=== PATIENT | male | born 1980 | race Caucasian/White ===

== ENCOUNTER 2017-05-23 23:27 | Emergency (ER) | payer BC ==
--- NOTE | 2017-05-24 00:02 | ED ---
Skin Complaint - HPI Summary HPI Summary: 36M presents with bump on the top of his head for 6 days. He states the area is painful. He states that he has noticed swelling down the back of his head. He states that the redness of the area is spreading. He denies any fever. He denies the area being itchy. He denies any tick exposure. He does not know if he was bite by something. He has not taken anything for pain. He does not have a primary. - History of Current Complaint Chief Complaint: EDHeadInjury Time Seen by Provider: 05/23/17 23:38 Stated Complaint: SWOLLEN ON TOP OH HEAD AND PAINFUL Pain Intensity: 2 - Allergy/Home Medications Allergies/Adverse Reactions: Allergies Allergy/AdvReac Type Severity Reaction Status Date / Time No Known Allergies Allergy Verified 05/25/14 06:31 PMH/Surg Hx/FS Hx/Imm Hx Endocrine/Hematology History: Denies: Hx Anticoagulant Therapy, Hx Diabetes Cardiovascular History: Denies: Hx Hypertension Infectious Disease History: No Infectious Disease History: Denies: Traveled Outside the [place] in Last 30 Days - Family History Known Family History: Negative: Cardiac Disease - Social History Alcohol Use: None Substance Use Type: Reports: None Smoking Status (MU): Former Smoker Review of Systems Negative: Fever Negative: Chest Pain Negative: Shortness Of Breath Positive: Rash All Other Systems Reviewed And Are Negative: Yes Physical Exam Triage Information Reviewed: Yes Vital Signs On Initial Exam: Initial Vitals Temp Pulse Resp BP Pulse Ox 98.2 F 61 16 160/91 100 05/23/17 23:30 05/23/17 23:30 05/23/17 23:30 05/23/17 23:30 05/23/17 23:30 Vital Signs Reviewed: Yes Appearance: Positive: Well-Appearing Skin: Positive: Other - 3 by 5cm area of erythema withou warmth to touch with some edema down back of head without any evidence of streaking Eyes: Positive: Normal, EOMI, JOHNSON, Conjunctiva Clear ENT: Positive: Normal ENT inspection, Pharynx normal, TMs normal Respiratory/Lung Sounds: Positive: Clear to Auscultation, Breath Sounds Present Cardiovascular: Positive: Normal, RRR Diagnostics - Vital Signs Vital Signs Temp Pulse Resp BP Pulse Ox 05/23/17 23:30 98.2 F 61 16 160/91 100 - Laboratory Lab Statement: Any lab studies that have been ordered have been reviewed, and results considered in the medical decision making process. Course/Dx - Course Course Of Treatment: 36M presents with bump on the top of his head for 6 days. He states the area is painful. He states that he has noticed swelling down the back of his head. He states that the redness of the area is spreading. He denies any fever. He denies the area being itchy. He denies any tick exposure. on exam area does not appear cellulitic more like a bug bite with surrounding irritation. discussed with patient will send script to pharmacy for patient to reevulate area in morning then should start antibiotic if gets worst. patient understands and agrees with plan - Differential Diagnoses - Skin Complaint Differential Diagnoses: Abscess, Cellulitis, Contact Dermatitis - Diagnoses Provider Diagnoses: Rash Discharge - Discharge Plan Condition: Good Disposition: HOME Prescriptions: Cephalexin CAP* [Keflex CAP*] 500 mg PO BID #20 cap Referrals: [facility] [Outside] Additional Instructions: A script for an antibiotic was sent to the pharmacy. If the redness of the area continues to spread, the area becomes warm to the touch, or if develop a fever start the antibiotic twice a day for [address] ice on the area Continue placing neosporin on the area. Establish care with primary care physician Return to ED if develop any new or worsening symptoms
[2017-05-24 00:45] VITALS: BP 126/70
== END 2017-05-24 00:14 | disposition home or self-care (01) ==
LOC: ED 23:27
DX: R21 Rash and other nonspecific skin eruption (principal); Z87.891 Personal history of nicotine dependence
CPT/HCPCS: 99282

== ENCOUNTER 2017-05-26 15:38 | Emergency (ER) | payer BC ==
--- NOTE | 2017-05-26 17:28 | UC ---
Skin Complaint HPI - HPI Summary HPI Summary: This is an otherwise healthy 36 yo gentleman who presented with c/o a painful skin lesion on his scalp. He was seen for the same complaint 3d ago in the ER. It was thought to be a bug bite with associated cellulitis and he was started on Keflex. He has noted no improvement and new vesicular lesions have developed in the area. He reports the lesions as painful and occasional tingling sensation. No fevers or generalized complaints. - History of Current Complaint Chief Complaint: UCSkin Stated Complaint: SKIN COMPLAINT - SCALP - Allergy/Home Medications Allergies/Adverse Reactions: Allergies Allergy/AdvReac Type Severity Reaction Status Date / Time No Known Allergies Allergy Verified 05/26/17 15:53 Review of Systems Constitutional: Negative Skin: Rash Eyes: Negative ENT: Negative Respiratory: Negative Cardiovascular: Negative Gastrointestinal: Negative Genitourinary: Negative Motor: Negative Neurovascular: Negative Musculoskeletal: Negative Neurological: Negative Psychological: Negative All Other Systems Reviewed And Are Negative: Yes PMH/Surg Hx/FS Hx/Imm Hx Previously Healthy: Yes Other History Of: Negative For: Anticoagulant Therapy - Surgical History Surgical History: None - Family History Known Family History: Positive: None Negative: Cardiac Disease - Social History Alcohol Use: None Substance Use Type: None Smoking Status (MU): Former Smoker Physical Exam Triage Information Reviewed: Yes Appearance: Well-Appearing Vital Signs: Initial Vital Signs Temp 98.2 F 05/26/17 15:49 Pulse 86 05/26/17 15:49 Resp 18 05/26/17 15:49 Pulse Ox 100 05/26/17 15:49 Vital Signs Reviewed: Yes Neck: Positive: Supple, Nontender, No Lymphadenopathy Respiratory: Positive: Lungs clear, Normal breath sounds Cardiovascular: Positive: RRR, No Murmur Skin: Positive: Other - He has a raised lesion with shallow central ulceration over the L parietal region with new lesions with small vesicles just posterior to that in a somewhat linear distribution Course/Dx - Course Course Of Treatment: THis is an otherwise healthy 36 yo gentleman who presented with c/o a painful, vesicular rash over the L side of his scalp. No improvement with Keflex. Suspect herpes zoster. Could also represent poison letty or similar phenomenon. Started empiric therapy with valacyclovir and sample taken of vesicular fluid for zoster PCR testing. - Differential Diagnoses - Skin Complaint Differential Diagnoses: Drug Rash, Eczema, Impetigo, Local Allergic Reaction - Diagnoses Provider Diagnoses: 1. Probable herpes zoster Discharge - Discharge Plan Condition: Stable Disposition: HOME Prescriptions: Hydrocodone-Acetaminophen [Lorcet 5-325 mg] 1 - 2 tab PO Q6H PRN #20 tab MDD 8 tabs PRN Reason: Pain ValACYclovir (*) [Valtrex 1 GM(*)] 1 gm PO TID #21 tab Patient Education Materials: Shingles (ED), Poison Letty (ED) Referrals: No Primary Care Phys,NOPCP [Primary Care Provider] - Additional Instructions: Activity: No restrictions Instructions: 1. Start valacyclovir as directed 2. Call for results of the sample we took today, and if negative you can stop the valacyclovir and use hydrocortisone cream 3. Follow up with your primary care if symptoms persist
[2017-05-26 17:32] VITALS: BP 131/77
[2017-05-30 01:07] LABS: Varicella Zoster Result Positive (Negative)
== END 2017-05-26 17:24 | disposition home or self-care (01) ==
LOC: UCEAST 15:38
DX: L98.9 Disorder of the skin and subcutaneous tissue, unspecified (principal); Z87.891 Personal history of nicotine dependence
CPT/HCPCS: 87798; 99212; G0463

== ENCOUNTER 2019-06-15 10:49 | Observation (INO) | payer BC, OTHER ==
[2019-06-15] MEDS ORDERED: Ibuprofen TAB* 600 MG PO ONE (12:21)
[2019-06-15] MEDS: Lidocaine 1% MPF ** 5 ML VIAL INJ ONE ×2 (12:48→14:37)
[2019-06-15] MEDS ORDERED: Cephalexin CAP* 500 MG PO ONE (12:49)
[2019-06-15] MEDS ORDERED: Ondansetron INJ* 2 MG/ML VIAL IV PRN ×2 (14:05→17:18)
[2019-06-15] MEDS ORDERED: Morphine INJ* 2 MG/ML 1 ML SYRINGE (TWO MG - NEW SYRINGE VERSION) IV PRN (14:05)
--- NOTE | 2019-06-15 14:17 | HP ---
HISTORY AND PHYSICAL: DATE OF ADMISSION: 06/15/19 HISTORY OF PRESENT ILLNESS: Mr. 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 He was putting some trash in the dumpster when the dump ster lid came down on his left index MCP joint. He has a 2 cm laceration there and an angulated prox imal phalangeal fracture. This will be washed out and pinned in the operating room and he ate approx imately 3 hours ago, so hopefully within 3 hours we can do this procedure. He is otherwise a healthy gentleman on no particular medications, and systemic medical illness. He h as been feeling well lately. FAMILY HISTORY: Noncontributory. SOCIAL HISTORY: Noncontributory. REVIEW OF SYSTEMS: Negative for fevers, chills, headache, chest pain, shortness of breath, abdominal distress, neurological issues, depression, and anxiety. PHYSICAL EXAMINATION GENERAL: Ruiz is an anxious, but healthy-appearing male in no acute distress. Appropriate mood an d affect. HEENT: He has a clear oropharynx. NECK: Supple. CHEST: Clear to auscultation in all lung fam. CARDIAC: Shows regular rate. No extra sounds noted. ABDOMEN: Flat and nontender. EXTREMITIES: Pertinent for left upper extremity where he shows a 2-cm oblique laceration over the MC P joint of his left index finger. He is unable to extend or flex the index finger, but he has intact sensation to the finger itself with a warm finger and good capillary refill. DIAGNOSTIC STUDIES: Again, x-ray shows about 45 degree angulation through this proximal phalangeal fracture, which is more or less transverse in the proximal third. ASSESSMENT AND PLAN: The patient will need debridement of the wound and inspection of the tendon and pinning of the fracture under anesthesia. [id number]/[facility] #: [id number]
--- NOTE | 2019-06-15 14:28 | ED ---
Upper Extremity Pain - HPI Summary HPI Summary: Pt. is a 38 y.o male who presents to the ER for an injury to his left hand. 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 Pt. states last tetanus was last year. No past medical hx. Sxs are mild in severity. Moving hand makes sxs worse. Nothing makes sxs better. - History of Current Complaint Chief Complaint: EDLacSutureRecheck Stated Complaint: CRUSHED LEFT POINTER FINGER PER PT Time Seen by Provider: 06/15/19 12:13 Hx Obtained From: Patient - Allergies/Home Medications Allergies/Adverse Reactions: Allergies Allergy/AdvReac Type Severity Reaction Status Date / Time No Known Allergies Allergy Verified 06/15/19 11:58 PMH/Surg Hx/FS Hx/Imm Hx Previously Healthy: Yes Endocrine/Hematology History: Denies: Hx Anticoagulant Therapy, Hx Diabetes Cardiovascular History: Denies: Hx Hypertension Infectious Disease History: No Infectious Disease History: Denies: Traveled Outside the [place] in Last 30 Days - Family History Known Family History: Positive: None, Non-Contributory Negative: Cardiac Disease - Social History Occupation: Employed Full-time Lives: With Family Alcohol Use: Occasionally Substance Use Type: Reports: None Smoking Status (MU): Former Smoker Review of Systems Positive: Other - pain and laceration to left second digit of hand. Positive: Other - laceration Negative: Weakness, Paresthesia, Numbness All Other Systems Reviewed And Are Negative: Yes Physical Exam Triage Information Reviewed: Yes Vital Signs On Initial Exam: Initial Vitals Temp Pulse Resp BP Pulse Ox 99.0 F 83 18 159/70 98 06/15/19 10:53 06/15/19 10:53 06/15/19 10:53 06/15/19 10:53 06/15/19 10:53 Vital Signs Reviewed: Yes Appearance: Positive: Well-Appearing - Pt. sitting in chair in NAD. SO present. Skin: Positive: Warm, Dry Head/Face: Positive: Normal Head/Face Inspection Eyes: Positive: Normal, EOMI Neck: Positive: Supple Musculoskeletal: Positive: Other - 2cm linear laceration noted over left seond digit of hand. Finger is in a flexed position and pt. unable to extend digit. Neurological: Positive: Normal, CN Intact II-III Psychiatric: Positive: Affect/Mood Appropriate Diagnostics - Vital Signs Vital Signs Temp Pulse Resp BP Pulse Ox 06/15/19 10:53 99.0 F 83 18 159/70 98 - Laboratory Lab Statement: Any lab studies that have been ordered have been reviewed, and results considered in the medical decision making process. Course/Dx - Course Course Of Treatment: Patient presenting with left hand injury. Motrin given for pain. Tetanus is up-to-date per patient. X-ray per radiology: IMPRESSION : Displaced fracture through the proximal left second phalanx with volar apex angulation. Case discussed with Dr. Posada, orthopedics, who examined patient and the ER. He will plan to take him to OR today for washout and pinning. - Diagnoses Differential Diagnosis/HQI/PQRI: Positive: Contusion, Fracture (Open), Laceration, Strain, Sprain Provider Diagnoses: Open finger fracture Discharge - Sign-Out/Discharge Documenting (check all that apply): Patient Departure Patient Received Moderate/Deep Sedation with Procedure: No - Discharge Plan Condition: Stable Disposition: ADMITTED TO [facility] Referrals: No Primary Care Phys,NOPCP [Primary Care Provider] - - Billing Disposition and Condition Condition: STABLE Disposition: Admitted to [facility]
[2019-06-15] MEDS ORDERED: ceFAZolin 1 GM ADVAN(*) 1 GM in NS 0.9% 50 ML* 50 ML IVPB ONE (14:38)
[2019-06-15] MEDS ORDERED: Midazolam* 1 MG/ML 5 ML VIAL (5 MG) ONE (14:45)
[2019-06-15] MEDS ORDERED: Dexamethasone IV* 4 MG/ML 1 ML (4 MG) ONE (14:45)
[2019-06-15] MEDS ORDERED: fentaNYL* 50 MCG/ML 2 ML VIAL (100 MCG VIAL) ONE ×2 (14:45→17:48)
[2019-06-15] MEDS ORDERED: Lidocaine 2% PF * 5 ML VIAL ONE (14:45)
[2019-06-15] MEDS ORDERED: Ondansetron INJ* 2 MG/ML VIAL ONE (14:45)
[2019-06-15] MEDS ORDERED: Propofol* 10 MG/ML 20 ML BTL ONE (14:45)
[2019-06-15] MEDS ORDERED: ceFAZolin 2 GM in NS PREMIX(*) 2 GM/100 ML BAG IVPB ONE (14:52)
[2019-06-15] MEDS ORDERED: Famotidine IV* 10 MG/ML 2 ML (20 mg) ONE (15:15)
[2019-06-15] MEDS ORDERED: Bupivacaine 0.5%* 50 ML MDV VIAL ONE (15:18)
[2019-06-15] MEDS ORDERED: Famotidine IV* 10 MG/ML 2 ML (20 mg) IV ONE (15:24)
[2019-06-15] MEDS ORDERED: Buffered Lidocaine 1% SYRIN* 1 ML/SYRINGE INTRADERM ONE (15:24)
[2019-06-15] MEDS ORDERED: Cisatracurium* 2 MG/ML MDV 5 ML ONE (15:32)
--- NOTE | 2019-06-15 15:40 | HP ---
DATE OF ADMISSION: 06/15/2019. REASON FOR CONSULTATION: Open fracture, left index finger. 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 this morning, 06/15/2019. The patient's tetanus is up-to-date as of last year. The patient's last meal was this morning at 10: 00 a.m. when he has 1.5 bowls of cereal and an apple. He has had some sips of water with pills in [facility] emergency room. The patient crushed his finger putting out the trash at work this morning at 10:30 a.m. A cut was not ed, pain, swelling and deformity to the left index finger. The patient was taken to the emergency room where the patient was diagnosed by exam and x-rays with a n open fracture of the left index finger proximal phalanx. Orthopedic Surgery was called. The patien t was given oral Keflex in the emergency department. PAST MEDICAL HISTORY: None. PAST SURGICAL HISTORY: Myringotomy tubes. MEDICATIONS: None. ALLERGIES: No known drug allergies. FAMILY HISTORY: No family history of DVT or problems with anesthesia. Strong family history of hear t disease. SOCIAL HISTORY: The patient is right-hand dominant. He lives with his . The patient is very act chary and lifts weights. The patient and his stopped smoking seven years ago. REVIEW OF SYSTEMS: The patient occasionally gets some right upper extremity tingling which is very r are. Otherwise a full 14 point review of systems was normal. PHYSICAL EXAMINATION GENERAL: No acute distress. Alert and oriented. Appropriate mood and affect. Appropriate dress and hygiene. Non-antalgic gait. Well-coordinated bilateral upper and lower extremities. VITAL SIGNS: Stable. EXTREMITIES: Left hand: Exam shows a short oblique skin laceration overlying the base of the proxim al phalanx of the left index finger. There is no significant bleeding. The finger is warm and well- perfused. Cap refill less than two seconds distal end of the fingertip. Sensation is fully intact d orsally, but slightly reduced volarly radial and ulnar, but it is intact. The patient was able to extend at the DIP and PIP joint actively. IMAGING: X-ray views of the left hand obtained in the emergency room were reviewed by me. They show a fracture of the index finger proximal phalanx at the junction of the base and the proximal shaft. There is significant volar apex deformity at the fracture site. Noncomminuted. No other fracture i s noted in the hand. No metallic foreign bodies. ASSESSMENT: 1. Left index finger proximal phalanx open fracture, significantly displaced. 2. Possible left index finger extensor tendon injury. Unlikely, but possible. PLAN: 1. Patient was given oral Keflex in the emergency department. IV has not yet been established, but when it is the patient will get IV antibiotics. 2. I placed an iodine-soaked gauze over the wound and then applied dry sterile dressing and then tanya lied a volar splint of the fingers, hand, and wrist for comfort. 3. Continue the patient NPO. I spoke with the operating room and organized the patient being shlomo t to the operating room. 4. To the operating room for open incision, irrigation, and debridement left index finger with close d reduction percutaneous pinning versus open reduction internal fixation left index finger proximal p halanx fracture, possible repair of extensor tendon. 5. Obtained preoperative surgical consent, written. Discussed risks and potential complications at length with the patient. He understands that he will likely have pins in place for four weeks postop erative and that those will then be removed in clinic. 6. The patient will get IV antibiotics either in route to the operating room or just prior to surgic al incision. [id number]/[facility] #: [id number]
[2019-06-15] MEDS ORDERED: Lactated Ringers 1000 ML Bag* 1,000 ML IV SCH (16:00)
[2019-06-15] MEDS ORDERED: Glycopyrrolate IV* 0.2 MG/ML 1 ML VIAL ONE (16:41)
[2019-06-15] MEDS ORDERED: Neostigmine Methylsulfate* 1 MG/ML 10 ML VIAL (1 mg/ml) ONE (16:41)
[2019-06-15] MEDS ORDERED: fentaNYL* 50 MCG/ML 2 ML VIAL (100 MCG VIAL) IV PRN (17:18)
[2019-06-15] MEDS ORDERED: Naloxone* 0.4 MG/ML 1 ML VIAL IV PRN (17:18)
[2019-06-15] MEDS ORDERED: oxyCODONE/Acetamin 5/325 MG* TAB ONE (17:53)
[2019-06-15] MEDS: oxyCODONE/Acetamin 5/325 MG* TAB PO PRN ×2 (17:54→23:46)
[2019-06-15] MEDS: NS 0.9% 1000 ML** 1,000 ML IV SCH (18:36)
[2019-06-15] MEDS: Acetaminophen TAB* 325 MG PO PRN (20:11)
[2019-06-15] MEDS: ceFAZolin 1 GM* X 3 DOSES POST-OP Q8H (AddVan) IVPB SCH ×2 (23:47)
[2019-06-16] MEDS: NS 0.9% 1000 ML** 1,000 ML IV SCH (04:35)
[2019-06-16] MEDS: oxyCODONE/Acetamin 5/325 MG* TAB PO PRN (04:43)
[2019-06-16] MEDS: Acetaminophen TAB* 325 MG PO PRN (08:14)
[2019-06-16] MEDS: ceFAZolin 1 GM* X 3 DOSES POST-OP Q8H (AddVan) IVPB SCH ×4 (08:16→14:16)
--- NOTE | 2019-06-16 09:45 | PN ---
Progress Note - Progress Note Date of Service: 06/16/19 SOAP: Subjective: Minimal pain t/w Tylenol only so far. Objective: LUE: - Splint in place - Index finger tip CR < 2 seconds, sensation intact Selected Entries 06/16/19 08:00 Temperature 98.7 F Pulse Rate 50 Respiratory 16 Rate Blood Pressure 129/52 (mmHg) O2 Sat by Pulse 100 Oximetry Assessment: POD 1 L index finger I&D, CRPP open fracture index finger proximal phalanx, evaluation extensor mechanism Plan: - LUE splint in place - Sling has been called for. Patient can use the sling as desired to help with LUE elevation - Ancef IV x 3 doses postop for open fracture - Discharge home after IV abx finished. Then Keflex x 7 days oral. - Follow up in clinic on 06/21/19 for xrays and a change into a cast - Pain control
--- NOTE | 2019-06-16 10:17 | DS ---
Orthopedic Discharge Summary - Discharge Summary Date of Admission:06/15/19 Date of Discharge: 06/16/2019 Date of Surgery: 06/15/2019 Attending Orthopedic Provider: Dr. Causey Pre-operative Diagnosis: open fracture index finger proximal phalanx Operative Procedure: L index finger I&D, CRPP open fracture index finger proximal phalanx, evaluation extensor mechanism Disposition of Patient: Home Condition of Patient: Stable History: HECTOR SERRANO is a 38 y.o male who presented to the ER for an injury to his left hand. 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 Sxs are mild in severity. Moving hand makes sxs worse. Nothing makes sxs better. Hospital Course: HECTOR was admitted to [facility] on 06/15/19. Patient underwent a L index finger I&D, CRPP open fracture index finger proximal phalanx, evaluation extensor mechanism without complication followed by a brief recovery in PACU and transfer to the Short Stay Surgical Unit in stable condition. Post-op day 1: patient was alert and in no acute distress. Dressing was clean, dry and intact. Patient was deemed to be medically and orthopedically stable for discharge. Home Medications Medication Instructions Recorded Confirmed Type NK [No Home Medications Reported] 06/15/19 06/15/19 History Discharge Instructions following Orthopedic Surgery: Wound care: Keep dressing dry and intact until office visit. Call Orthopedic office for: * Increased drainage * Redness * Increased pain * Fever Go to ER with shortness of breath or chest pain. Diet: * Regular diet * Increase fluids and fiber to prevent constipation. * Continue to use stool softeners, call office if no bowel motion within 48 hours. Medications See Home Medication List in your packet for medications that you should take after discharge. Pain Control: Tramadol 50 mg, take 1 tab every 6 hours as needed for pain. Antibiotics: Keflex 500mg 3 times per day x 7 days FOLLOW UP: Follow up with Dr. Causey on 06/21/2019, call for appointment Please call our office with any questions or concerns ([phone])
[2019-06-16 11:13] VITALS: BP 124/58
[2019-06-16] MEDS ORDERED: ceFAZolin 1 GM* X ONE DOSE (AddVan) IVPB ×2 (15:00)
--- NOTE | 2019-06-16 21:50 | OP ---
OPERATIVE REPORT: DATE OF OPERATION: 06/16/19 DATE OF : 82 SURGEON: Guilherme Causey MD FILAMENT WELDER: None. ANESTHESIOLOGIST: Dr. Shahid Weeks. ANESTHESIA: General anesthesia, local anesthesia with approximately 6 cc of Marcaine 0.5% without ep inephrine. PRE-OP DIAGNOSES: 1. Left index finger proximal phalanx open fracture, significantly displaced. 2. Possible left index finger extensor tendon injury. POST-OP DIAGNOSIS: Left index finger proximal phalanx open fracture, significantly displaced. OPERATIVE PROCEDURE: 1. Incision, irrigation, and debridement, skin and subcutaneous tissue about the left index finger f or an open fracture. 2. Open evaluation of extensor tendon and extensor tendon mechanism, left index finger. 3. Closed reduction, percutaneous pinning, left index finger proximal phalanx open fracture. ANTIBIOTICS: Ancef 2 g IV. IV FLUIDS: See Anesthesia note. FDWQ-UP-EFGY TIME: Approximately 40 minutes. TOURNIQUET TIME: 45 minutes at 250 mmHg, left upper arm tourniquet. RADIATION EXPOSURE: Mini-C arm. Length of time and actual exposure not available at this time. IRRIGATION USED TO CLEAN THE WOUND: 3 L. COMPLICATIONS: None. SPECIMENS: None. IMPLANTS: Synthes K-wires x3, each of the size 0.045. ESTIMATED BLOOD LOSS: None, 0 cc. 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 on 06/15/19, at work. The patient presented to the emergency depart [facility] and was diagnosed with an open fracture of the left proximal phalanx of the index finger. I saw the patient in the emergency department, placed iodine soaked gauze over the wound as can be no dariel in my history and physical. I placed the patient in a splint. Antibiotics were ordered. The pa tient was quickly brought up to preoperative holding and then to the operating room with excellent ef ficiency. Discussed risks and potential complications of the surgery with the patient and his including bl eeding, infection, nerve or blood vessel injury, failure of hardware, failure of reduction, finger st iffness, pain, osteoarthritis. Discussed period of postoperative immobilization required. DESCRIPTION OF PROCEDURE: In preoperative holding, I obtained the patient's written consent. Operat chary extremity and operative finger marked with a marking pen. The patient was brought back to the operating room on a stretcher. Sedated and intubated. Tournique t was placed about the left upper arm. Left upper extremity was placed on a hand table and was prepp ed and draped. Betadine was used given the open wound over the dorsum of the index finger. Surgical time-out performed. Esmarch was applied and tourniquet was elevated. I first explored the wound. The patient had a short oblique shaped wound over the dorsum of the inde x finger at the level of the fracture. I extended that laceration proximally and distally. I opened up the laceration and inspected the tissues below. It turned out that the patient's extensor mechan ism was entirely intact. Extensor viera and tendons and all the tissue of that layer were intact. I next irrigated the wound with 3 L of normal saline. I should state that prior to doing this there was not significant contamination of the wound. I closed the laceration and incisions loosely with simple stitches using nylon 4-0 suture. With the irrigation, debridement, and inspection with extensor mechanism complete, I moved to fixing the patient's bone. I performed a closed reduction. I first placed a pin through the radial base of the proximal phalanx directed in a distal and ulnar d irection. Adjusted that pin several times until I liked it. I confirmed excellent reduction in both AP and lateral planes with mini-C arm imaging. I confirmed no rotational deformity and intact digit al cascade on exam. I next placed the pin from the ulnar base in a distal radial direction, crossing he fracture site, pi n placed bicortically. At this point, I again assessed by mini-C arm imaging the bony reduction and on physical exam the rotation of the finger. Because the first pin that I have placed earlier did not grab a significant component of the bone puja pite being bicortical, I decided to get even better purchase and fixation, and I placed a second pin. This one more longitudinally, through the radial base of the proximal phalanx in a distal and ulnar direction. Mini-C arm final images obtained. Rotation of the finger confirmed to still be excellent. All pins placed just bicortically according to mini-C arm imaging. The pins, all 3 of them, which were all of 0.045 size were cut, bent and recut outside the skin. I p laced stoppers on the tips of the pins. Xeroform was placed around each pin as it entered the skin. This was followed by a very bulky steril e 4x4 soft tissue dressing which was followed by a bulky sterile Webril. With the patient's hand in the intrinsic plus position, I next placed on a bulky short arm splint, pl dani, volar and dorsal slabs, to the fingertips of the index, long, ring, and small fingers with the hand in an intrinsic plus position. This was overwrapped with an Derick bandage. Tourniquet was dropped. The patient was awakened and extubated and brought to the PACU. I should state that I prior to placing a dressing placed some local anesthesia, proximally 6 cc of 0. 5% Marcaine about the pin sites as well as more proximal along the dorsal hand. DISPOSITION: Postoperatively, the patient transferred to the PACU and then to the floor. Because th e patient had an open fracture, per protocol, I wanted the patient to get 24 hours of IV antibiotics. Therefore, the patient was going to stay for Ancef 1 g IV q.8 hours for 3 postoperative doses. The patient's pain was controlled with oral pain medicine. The patient was placed in a sling to elevate the left upper extremity as needed. Tomorrow, postoperative day #1, the patient the plan was for the patient to be discharged home with t ramadol as needed for pain and for 7 days of Keflex antibiotics. The patient will follow up with me in clinic on 06/21/19 for x-rays and a conversion into a short-arm radial gutter cast. The patient w ill be in that cast for 3 weeks and then we will remove those pins in the clinic at approximately 4 w eeks postoperative. [id number]/[facility] #: [id number]
== END 2019-06-16 15:30 | disposition home or self-care (01) ==
LOC: ED 10:49 → OR 15:02 → SSU 19:02
PROVIDERS: ADMIT Orthopaedic Surgery; ATTEND Orthopaedic Surgery
DX: S62.611B Displaced fracture of proximal phalanx of left index finger, initial encounter for open fracture (principal); W23.0XXA Caught, crushed, jammed, or pinched between moving objects, initial encounter; Y92.9 Unspecified place or not applicable; Z87.891 Personal history of nicotine dependence
CPT/HCPCS: 76000; 96361; 96374; 99284; A9270-GY; C1776; G0378; J0690; J1100; J2250; J2405; J2704; J2710; J3010; J3490